=== PATIENT | female | born 1965 | race Caucasian/White ===

== ENCOUNTER 2018-11-26 13:36 | Emergency (ER) | payer SELFPAY ==
--- NOTE | 2018-11-26 13:58 | ED Physician Documentation ---
General Adult - HISTORIAN Historian: patient - HPI Stated Complaint: abdominal pain Chief Complaint: Abdominal Pain Onset: hours (4) Timing: still present Severity: moderate Further Comments: yes (She reports mid am she started to have epigastric to mid abdominal pain and she has had increasing pain since this started. She denies any fever. No sick contacts. She did have a small bowel movement this am. Denies any nasuea. She has a history of chronic pancreatitis. She does have type 2 diabetes. She has not tried any OTC meds for pain. Denies any injury. She reports she does not feel this abdominal pain is like her pancreatitis - "doesnt feel the same" She rates the pain 07/19.) - ROS CONST: no problems EYES/ENT: none GI/: abdominal pain. denies: problems urinating, vomiting, nausea, diarrhea MS/SKIN/LYMPH: denies: rash NEURO/PSYCH: denies: headache, fainting, dizziness - PAST HX Past History: other (hyperlipidemia, chronic pancreatitis, ) Other History: diabetes Type 2 Surgeries/Procedures: cholecystectomy, hysterectomy, other (adhesions removed 2015 - pancreatic procedure in 2011) Allergies/Adverse Reactions: Allergies Allergy/AdvReac Type Severity Reaction Status Date / Time No Known Drug Allergies Allergy Unverified 04/20/18 13:27 - SOCIAL HX Smoking History: cigarettes Alcohol Use: none Drug Use: none - FAMILY HX Family History: No - REVIEWED ASSESSMENTS Nursing Assessment Reviewed: Yes Vitals Reviewed: Yes Progress - Progress Progress: 1437: pain med was discontinued Qiana Guzmán RN states she did not want to give med due to pt sleeping in room - med was discontinued DG 1516: Pt is requesting pain med states she was not sleeping. Pain is 07/19 DG 1530: Pt states pain med is helping pain is now a 01/17 DG 1554: Discussed case with Doris boom Abdalla - she is requesting a copy of the CT rep ort be faxed DG 1559: Pt is asking for more pain med states pain is 05/19 DG ED Results Lab/Radiology - Radiology Radiology Impressions: CT abdomen and pelvis with contrast Date of study: CLINICAL HISTORY: EPIGASTRIC PAIN. HX OF CHRONIC PANCREATITIS, CHOLECYSTECTOMY, AND HYSTERECTOMY. 95 ML OMNI 350 IV CONTRAST. (Hx) / ITS.REASON Abd pain (DICOM Hx) TECHNIQUE: 5 mm contiguous axial images of the abdomen and pelvis with IV contrast. With; 95 ML OMNI 350 IV CONTRAST FINDINGS: Dense coronary artery calcification is present in the left anterior descending coronary artery. There is a hiatus hernia. The liver and spleen are unremarkable. There is no adrenal or pancreas lesion. The gallbladder has been removed. Kidneys enhance normally. There is aortoiliac vascular calcification. Appendix is visible and is within normal limits. Small bowel wall thickening is present in the midabdomen. There is also dilated small bowel with air fluid levels. Aortoiliac vascular calcification is present. The pelvis shows free fluid colonic diverticulosis and hysterectomy. The bladder is unremarkable. Fecalized small bowel contents are present in the dilated small bowel loops in the anterior mid abdomen. IMPRESSION: Dilated small bowel loops with fecalized small bowel contents suspicious for a small bowel obstruction in the anterior mid abdomen. Small bowel wall thickening is also present involving small bowel in this area suggesting enteritis or inflammation. Dense coronary artery calcification Hiatus hernia Hysterectomy Pelvic ascites Cholecystectomy Electronically signed on Nov 26, 2018 3:25:33 PM LEAF CONDITIONER HELPER by: Jason Cedillo General Adult Physical Exam - PHYSICAL EXAM GENERAL APPEARANCE: moderate distress EENT: eye inspection normal, no signs of dehydration NECK: normal inspection RESPIRATORY: no resp distress, chest non-tender, breath sounds normal CVS: reg rate & rhythm, heart sounds normal ABDOMEN: soft, tenderness (diffuse ), decreased BS. No: rebound BACK: normal inspection, no CVA tenderness EXTREMITIES: non-tender, normal range of motion, no evidence of injury, no edema NEURO: oriented X3 Discharge Clincal Impression: Small bowel obstruction Referrals: Primary Doctor,No [Primary Care Provider] - 2 Days Comments: Discussed case with Doris ZUÑIGA Condition: Serious Disposition: XFER SHT-TRM HOSP Decision to Admit: [id number] Date of Decison to Admit: 11/26/18 Decision Time: 16:28
[2018-11-26] MEDS ORDERED: 0.9 % SODIUM CHLORIDE 1,000 ML IV ONE (14:15)
[2018-11-26 14:22] LABS: MEAN CORPUSCULAR HEMOGLOBIN 31.3 pg (28.0-34.0)
[2018-11-26 14:23] LABS: BASOPHILS % 0.6 (0.0-1.5); EOSINOPHILS % 1.7 % (0.0-6.8); MONOCYTES % 4.5 % (0.0-11.0); NEUTROPHILS # 10.3 # k/uL (1.4-7.7)
[2018-11-26 14:33] LABS: eGFR (Non-African) > 60
[2018-11-26] MEDS ORDERED: HYDROmorphone HCL/PF 1 MG/ML VIAL IVP ONE ×2 (14:36→15:16)
[2018-11-26] MEDS ORDERED: HYDROmorphone HCL/PF 2 MG/ML VIAL ONE (14:45)
--- NOTE | 2018-11-26 15:28 | Diagnostic Imaging Report ---
LEVON GILMORE [facility] [id number] [facility] [address] [place], [place]. [address] Report Submission Date: Nov 26, 2018 3:25:33 PM CUSTOMER EXPERIENCE MANAGER Patient Study Name: DAE DONATO Date: Nov 26, 2018 2:57:02 PM CUSTOMER EXPERIENCE MANAGER Modality Type: CT\SR Gender: F Description: CT ABD PELVIS W/ CON : 65 Institution: [facility] Physician: LEVON GILMORE CT abdomen and pelvis with contrast Date of study: CLINICAL HISTORY: EPIGASTRIC PAIN. HX OF CHRONIC PANCREATITIS, CHOLECYSTECTOMY, AND HYSTERECTOMY. 95 ML OMNI 350 IV CONTRAST. (Hx) / ITS.REASON Abd pain (DICOM Hx) TECHNIQUE: 5 mm contiguous axial images of the abdomen and pelvis with IV contrast. With; 95 ML OMNI 350 IV CONTRAST FINDINGS: Dense coronary artery calcification is present in the left anterior descending coronary artery. There is a hiatus hernia. The liver and spleen are unremarkable. There is no adrenal or pancreas lesion. The gallbladder has been removed. Kidneys enhance normally. There is aortoiliac vascular calcification. Appendix is visible and is within normal limits. Small bowel wall thickening is present in the midabdomen. There is also dilated small bowel with air fluid levels. Aortoiliac vascular calcification is present. The pelvis shows free fluid colonic diverticulosis and hysterectomy. The bladder is unremarkable. Fecalized small bowel contents are present in the dilated small bowel loops in the anterior mid abdomen. IMPRESSION: Dilated small bowel loops with fecalized small bowel contents suspicious for a small bowel obstruction in the anterior mid abdomen. Small bowel wall thickening is also present involving small bowel in this area suggesting enteritis or inflammation. Dense coronary artery calcification Hiatus hernia Hysterectomy Pelvic ascites Cholecystectomy Electronically signed on Nov 26, 2018 3:25:33 PM CUSTOMER EXPERIENCE MANAGER by: Jason MILLER
[2018-11-26] MEDS ORDERED: fentaNYL CITRATE/PF 100 MCG/2 ML INJ. IVP ONE (15:58)
[2018-11-26 17:31] VITALS: BP 142/74
[2018-11-26 17:59] LABS: APPEARANCE,URINE CLOUDY (CLEAR); COLOR,URINE YELLOW (YELLOW); OCCULT BLOOD,URINE NEGATIVE (NEGATIVE); PH URINE 7.5 (5.0 - 8.0); UROBILINOGEN URINE 0.2 Eu (0.2-1.0)
== END 2018-11-26 16:50 | disposition short-term general hospital (02) ==
LOC: ED 13:36
DX: K56.609 Unspecified intestinal obstruction, unspecified as to partial versus complete obstruction (principal)
CPT/HCPCS: 36415; 74177; 80053; 81002; 83690; 85025; 96374; 96375; 99285; J1170; J3010; J7030; Q9967; S1016

== ENCOUNTER 2019-10-05 07:19 | Outpatient (CLI) | payer BC ==
[2019-10-05 08:16] LABS: HDL 47 mg/dL (>40); eGFR (Non-African) > 60
[2019-10-08 08:35] LABS: A1C 7.5 % (<5.7)
== END 2019-10-05 07:24 ==
LOC: LAB 07:19
PROVIDERS: ATTEND Family Medicine
DX: E11.9 Type 2 diabetes mellitus without complications (principal)
CPT/HCPCS: 36415; 80053; 80061; 83036